=== PATIENT | female | born 1965 | race Caucasian/White ===

== ENCOUNTER → 2016-09-30 | Day surgery (SDC) | payer BC ==
[~2016-09-30] VITALS: Ht 160 cm; Wt 91.0 kg
[~2016-09-30] MED LIST: ACET-645 PO; ASPI1TAB PO; BACITRACIN PWD 50,000 UNITS VIAL As Ordered ONE; BUPIVACAINE HCL 0.5% 30 ML VIAL As Ordered ONE; CITA40TA4 PO; COZA1TAB PO; HYDR-3565 PO; LIDOCAINE 2% INJ 100 MG/5 ML SDV (FOR ANES.) As Ordered ONE; LIDOCAINE 2% MDV 20 ML VIAL As Ordered ONE; LR 1,000 ML IV SCH; METF500T PO; MIDAZOLAM INJ 2 MG/2 ML VIAL (J2250) As Ordered ONE; NEOSPORIN GU IRRIG 20 ML VIAL As Ordered ONE; OMEP40CA2 PO; PHEN-239 PO; PROPOFOL 200 MG/20 ML VIAL As Ordered ONE; SIMV10TA2 PO; SING10TA32 PO; dexameTHASONE 4 MG/ML 1ML VIAL (J1100) As Ordered ONE; fentaNYL 100 MCG/2 ML INJECTION (J3010) As Ordered ONE
[2016-09-30 11:00] VITALS: BP 140/66
--- NOTE | 2016-09-30 22:00 | REP ---
Clinical: Status post bunionectomy. Technique: Portable AP, lateral, oblique views. Findings: The patient is status post bunionectomy procedure with open reduction/fixation involving the distal aspect first metatarsal bone. Overlying postsurgical changes including swelling and subcutaneous emphysema noted. Small bony density at the base of the first tarsometatarsal joint along with joint space narrowing and subchondral sclerosis may be related to degenerative changes or prior trauma. Remainder examination appears normal. Impression: Status post bunionectomy with postsurgical changes. Degenerative versus post traumatic changes at the first tarsometatarsal joint appear chronic. Signed by Pierre Huber MD 09/30/2016 09:52 P
--- NOTE | 2016-10-01 07:06 | RO ---
DATE OF PROCEDURE: 09/30/2016 PREPROCEDURE DIAGNOSIS: Hallux valgus deformity right foot. POSTPROCEDURE DIAGNOSIS: Hallux valgus deformity right foot. PROCEDURE: Janelle bunionectomy with internal screw fixation right foot. SURGEON: Rudolph Hernandez DPM [employer] TEST TECHNICIAN: None. ANESTHESIA: Local, monitored anesthesia care (MAC). IRRIGATION: Dilute bacitracin, neomycin and polymyxin B solution. HEMOSTASIS: Ankle tourniquet at 200 mmHg for 29 minutes right ankle. HARDWARE UTILIZED: Villa DartFire 3.0 x 28 mm compression screw. ESTIMATED BLOOD LOSS: Less than 5 mL. DESCRIPTION OF PROCEDURE: On 09/30/2016, this 50-year-old white female was taken from her hospital room to the operating room and placed on the operating room table in a supine position. Following the induction of IV sedation and local and regional anesthesia, the right lower extremity was prepped and draped in the usual aseptic manner. The right lower extremity was elevated 45 degrees in a horizontal plane for the purpose of preoperative exsanguination of the limb. During this three minute time period, an ankle pneumatic tourniquet was applied just proximal to the medial and lateral malleolus over a well padded site. To further exsanguinate the limb, a Leonardo's Esmarch bandage was placed circumferentially extending from the digits to the distal edge of the ankle pneumatic tourniquet and the ankle pneumatic tourniquet was rapidly inflated to 200 mmHg for the purpose of intraoperative hemostasis. The Leonardo's Esmarch bandage was removed, the right lower extremity was returned to the operating room table, sterile draping was completed and the following procedure was performed. JANELLE BUNIONECTOMY WITH INTERNAL SCREW FIXATION RIGHT FOOT: Attention was directed to the patients right foot where there was noted to be a hallux valgus deformity. At this time, a 5 cm incision was placed over the first metatarsal phalangeal joint medial to the extensor tendon. The incision was deepened through subcutaneous tissues and all coursing venous tributaries were identified, underscored, clamped, cut, ligated, and electrocoagulated as necessary. Incision was carried in the same plane and all vital neurovascular structures were identified, mobilized and retracted medially and laterally. A linear capsulotomy was then performed in the same plane as the original skin incision. The capsule and periosteal structures were then dissected free in one continuous layer dorsally, medially and laterally, thus creating a capsule and periosteal type envelope. This delivered into view the hypertrophied medial eminence which was osteotomized from distal to proximal through and through exiting medial to the sesamoidal groove. Attention was then directed into the first metatarsal space where dissection was carried down to the level of the fibular sesamoid where the conjoined tendon was sharply dissected free from the fibular sesamoid. Attention was then directed to the medial surface of the first metatarsal where a V-shaped osteotomy was performed in the distal metaphysis of the first metatarsal with a long plantar wing. Upon creation of this osteotomy, the capital fragment was transposed approximately 35-40% of the width of the shaft of the first metatarsal and fixated with a 3.0 x 28 mm Villa DartFire compression screw. The osteotomy was noted to be in stable in all three cardinal planes. The redundant cortical spike was then osteotomized from dorsal to plantar through and through and extirpated from the wound in toto. The medial surface was rasped to a smooth contour. The wound was flushed with copious amounts of dilute bacitracin, neomycin and polymyxin B solution. Attention was directed toward closure where the capsular structures were coapted and maintained utilizing #3-0 Vicryl in a simple interrupted type fashion. Subcutaneous tissues were then coapted and maintained utilizing #4-0 Monocryl in a simple interrupted type fashion. The skin incision was coapted and maintained utilizing #4-0 Prolene in a continuous subcuticular type fashion. This was additionally reinforced with Steri-Strips. Following the completion of the surgical procedure, 4 mg of dexamethasone sodium phosphate and 1 mL of 0.5% Marcaine was instilled just proximal to the surgical site. Attention was directed towards bandaging where a sterile compressive bandage was applied consisting of Adaptic, 4x4s, 4x4 splints, Wale, Kerlix and Coban. The ankle pneumatic tourniquet was rapidly deflated and instantaneous capillary filling time was noted in digits 1-5 of the patients right foot. The patient having apparently tolerated the surgical procedure well was taken from the operating room (OR) to the recovery room with vital signs stable and the patient afebrile for further monitoring by the anesthesia department. All surgical specimens removed during the operative procedure were sent to pathology for gross and microscopic examination. Postoperative instructions will be given upon discharge.
== END ==
LOC: M SDC 08:05
PROVIDERS: ATTEND Podiatrist
DX: M20.11 Hallux valgus (acquired), right foot (principal); M79.671 Pain in right foot; E11.9 Type 2 diabetes mellitus without complications; E78.5 Hyperlipidemia, unspecified; K21.9 Gastro-esophageal reflux disease without esophagitis; F41.9 Anxiety disorder, unspecified; F32.9 Major depressive disorder, single episode, unspecified; J30.9 Allergic rhinitis, unspecified; E66.9 Obesity, unspecified; Z79.899 Other long term (current) drug therapy; Z79.82 Long term (current) use of aspirin; Z79.84 Long term (current) use of oral hypoglycemic drugs; Z88.5 Allergy status to narcotic agent
CPT/HCPCS: 28296; 73630; 88300; 97116; C1776; J0690; J1100; J2250; J3010